=== PATIENT | female | born 1950 | race Caucasian/White ===

== ENCOUNTER 2016-05-18 09:31 | Inpatient (IN) | payer BC ==
--- NOTE | ~2016-05-18 | CN ---
Consultation Report [facility] [address] [place]. [address] NAME: CHENG MANCILLA : 52 STATUS : ADM IN [facility]#: [id number] AGE: 65 ADM/REG DATE : 05/18/16 MR#: [id number] REPORT SERV DATE: 05/25/16 DICTATED BY: GIOVANA BARON DATE: 05/24/16 REPORT STATUS : Draft TRANSCRIBED BY: ANKITA DATE: 05/24/16 NEUROLOGY CODE STROKE DATE OF CONSULTATION: 05/22/2016 CRITICAL CARE TIME: 58 minutes. The patient was evaluated and transferred to the critical care unit. HISTORY OF PRESENT ILLNESS: This is a 65-year-old female with known history of atrial fibrillation and past history of ? CVA, history of pseudoseizures are mentioned in the patient's past medical history in March 2016 when the patient had a nervous breakdown. This morning, the patient appeared to be poorly responsive to the nurses, refused to follow commands but appeared to move her four extremities spontaneously and purposefully. The patient appeared nervous and was not speaking. The patient's heart rate at that time was noted to be 120 although the patient's blood pressure and her vital signs were normal. Code stroke was called, and the patient was taken to the CT to obtain emergency CT scan of the head. The patient was evaluated in the CT scanner. At that time, the patient resisted eye opening, appeared to move her arms and legs spontaneously when moved from the stretcher to the CT table. The patient's NIH was difficult to evaluate since the patient did not follow commands although appeared to be alert. CT scan of the head showed no evidence of acute changes. Mild microvascular changes were noted. CTA was obtained to rule out evidence of occlusion or thrombosis and show no evidence of abnormalities. These were done as per stroke protocol. The patient's vital signs are stable. Blood pressure was 120/68. PHYSICAL EXAMINATION: VITAL SIGNS: Stable. Blood pressure was 120/68, pulse was 126 irregular, respirations 20, the patient was afebrile. HEENT: Head and neck examination showed her to be normocephalic. There was no evidence of trauma. Auscultation of the neck showed no evidence of bruits. Eye exam, sclerae were not icteric. Conjunctiva was pink. ENT exam was difficult to perform since the patient was not cooperative. Neck was supple. There was no Kernig or Brudzinski. Cervical range of motion appeared normal. CHEST: Symmetrical. LUNGS: Clear to auscultation. HEART: Irregular heart rate, approximately 120 beats per minute. ABDOMEN: Soft, nontender. Bowel sounds were present. EXTREMITIES: Showed no clubbing or cyanosis. There was no peripheral edema. NEUROLOGIC: Showed the patient to have normal spontaneous movements. The patient, however, refused to follow commands, resisted eye opening and eventually started mouthing words which were appropriate; however, the patient followed commands partially. No evidence of seizure activity was noted. The patient moved all four extremities and appeared to have no focal deficits on examination. MUSCULOSKELETAL: The tone was normal on examination of the patient's muscles. Deep tendon Consultation Report [facility] [address] [place]. [address] NAME: CHENG MANCILLA : 52 STATUS : ADM IN [facility]#: [id number] AGE: 65 ADM/REG DATE : 05/18/16 MR#: [id number] REPORT SERV DATE: 05/25/16 DICTATED BY: GIOVANA BARON DATE: 05/24/16 REPORT STATUS : Draft TRANSCRIBED BY: MODLamar DATE: 05/24/16 reflexes 1/2 throughout. Babinski signs were not elicitable. Sensory exam and cerebellar exam could not be tested in view of the patient's lack of cooperation. PAST MEDICAL HISTORY: The patient's records were reviewed and the patient's past medical history was stated as history of psychiatric disorder and anxiety, possible CVA in 2016, atrial flutter, reported history of SVT, and history of membranous ventricular septal defect. MEDICATIONS: Prior to admission included aspirin, Coreg, benazepril, Cymbalta, Lasix, warfarin, clonazepam, zinc, and simvastatin. ALLERGIES: No known allergies. SOCIAL HISTORY: She is a former smoker. FAMILY HISTORY: Family history was not known since the patient was apparently adopted. REVIEW OF SYSTEMS: Could not be performed and no information was present in the patient's records. The patient was admitted on 05/18/2016 with increasing lower extremity edema and dyspnea. The patient was apparently having some difficulty with urinary incontinence, was placed in VESIcare prior to her admission which caused some urinary dysfunction. The patient is followed by Dr. Lowry from Cardiology. Review of the patient's records from [facility] Dr. Orlando Shin dated 03/31/2016 mentioned that the patient has been followed in the Coumadin Clinic and mentioned that the patient has been recovering from her stroke which was thought to be embolic from paroxysmal atrial fibrillation. The imaging studies which were mentioned in these records include that the patient mention the MRI of the brain performed on 02/18/2016 with minor asymmetry of the left hippocampal and region and small vessel disease with lesion burden being mild and no evidence of acute infarct. The patient's echo/MUGA showed mild LAE, EEG ejection fraction of 60% to 65%, perimembranous ventricular septal defect with vnsy-el-xyrtn shunt which was noted on 08/22/2015. The patient was transferred from CT to the CCU where she was placed on a monitor which showed atrial fibrillation with a heart rate of 126. The patient appeared to become more responsive followed some commands, however, still would keep her eyes closed. The results of CT and CTA were explained to the patient and her present at her bedside. IMPRESSION: #. Acute onset of paroxysmal atrial fibrillation, no evidence of acute stroke at this time. However, if patient's abnormal behavior or continued poor responsiveness persists, I would recommend to obtain an MRI of the brain. Recommend cardiac evaluation treatment and follow up. If needed, an outpatient Neurology follow up. Recommend anticoagulation laboratory studies should include if not done recently; serum lipid panel, TSH, free T4, free T3. The Consultation Report [address] [place]. [address] NAME: CHENG MANCILLA : 52 STATUS : ADM IN PAT#: [id number] AGE: 65 ADM/REG DATE : 05/18/16 MR#: [id number] REPORT SERV DATE: 05/25/16 DICTATED BY: GIOVANA BARON DATE: 05/24/16 REPORT STATUS : Draft TRANSCRIBED BY: MODLamar DATE: 05/24/16 patient does have increased risk of a stroke in view of her past history of possible strokes. #. History of anxiety and as mentioned in the patient's past record possible pseudoseizures, and outpatient Psychiatry referral is recommended if needed and Neurology outpatient evaluation. Thank you for allowing me to participate in this patient's care. Total time spent with this patient was 58 minutes of critical care time. MIKE/ANKITA Giovana Baron MD / [id number] / [id number] CC: Brandon Lowry M.D.
--- NOTE | ~2016-05-18 | CN ---
Consultation Report [facility] [address] [place]. [address] NAME: CHENG ALCALA : 52 STATUS : ADM IN PAT#: [id number] AGE: 65 ADM/REG DATE : 05/18/16 MR#: [id number] REPORT SERV DATE: 05/19/16 DICTATED BY: GARLAND HOPKINS DATE: 05/19/16 REPORT STATUS : Draft TRANSCRIBED BY: MODL DATE: 05/19/16 ELECTROPHYSIOLOGY CONSULTATION DATE OF CONSULTATION: 05/18/2016 REQUESTING PROVIDER: Dr. Brandon Lowry. INDICATIONS: Atrial flutter, RVR. HISTORY OF PRESENT ILLNESS: Ms. Cheng Alcala is a 65-year-old female with a history of ventricular septal defect and atrial flutter, managed with propafenone. She was seen in the office yesterday and was admitted by Dr. Lowry with volume overload. She has received diuretics with improvement in shortness of breath. She continued to have some lower extremity edema. She has had atrial flutter since admission with heart rate of 115 to 120 beats per minute. Her QRS is 128 milliseconds on her ECG with nonspecific interventricular conduction delay. She reports symptoms of palpitations and increased heart rate and some breathlessness that overall improved. No chest pain. No syncope. She does have a background of psychiatric disorder and has been admitted in the past with pseudoseizures. PAST MEDICAL HISTORY: CVA 2016, anxiety and psychiatric disorder, history of membranous ventricular septal defect, atrial flutter, reported history of SVT that may possibly be atrial flutter as well. MEDICATIONS: Aspirin, Coreg, donepezil, Cymbalta, iron sulfate, Lasix, propafenone 150 t.i.d., warfarin, clonazepam, zinc, and simvastatin. ALLERGIES: NONE KNOWN. SOCIAL HISTORY: Former smoker. FAMILY HISTORY: The patient is adopted, therefore unknown. REVIEW OF SYSTEMS: As per the HPI. Otherwise, all other review of systems is negative. PHYSICAL EXAMINATION: VITAL SIGNS: Blood pressure is 117/70, pulse is 110-120, respiratory rate is 18, the patient is afebrile, oxygen saturation 96% on room air. GENERAL: Appears stated age, no distress. EYES: Sclerae anicteric, no arcus senilis. MOUTH: Oral mucosa moist, lips acyanotic. NECK: Jugular venous pressure normal, no carotid bruits. LUNGS: Diminished breath sounds in the bases. CARDIAC: Regular rhythm, tachycardiac, 2/6 systolic murmur. Consultation Report [facility] [address] [place]. [address] NAME: CHENG ALCALA : 52 STATUS : ADM IN PAT#: [id number] AGE: 65 ADM/REG DATE : 05/18/16 MR#: [id number] REPORT SERV DATE: 05/19/16 DICTATED BY: GARLAND HOPKINS DATE: 05/19/16 REPORT STATUS : Draft TRANSCRIBED BY: ANKITA DATE: 05/19/16 ABDOMEN: Soft, nondistended, nontender. EXTREMITIES: have 2+ edema. SKIN: Warm and dry. NEURO/PSYCH: Alert and oriented, nonfocal, mood appropriate. IMAGING: ECG from 05/18/2016, 1252 hours is probable atrial flutter with 2:1 AV block, ventricular response 118 beats per minute, QRS duration 128 milliseconds. DATA: INR is 1.7. BNP is 886. Hemoglobin is 13, creatinine is 1.25, potassium is 4.2. IMPRESSION: 1. Atrial flutter. 2. Propafenone use with increased QRS duration. 3. History of ventricular septal defect. 4. Psychiatric disorder with polypharmacy. 5. History of anxiety. 6. Volume overload. In terms of rhythm issues, we discussed with her options of antiarrhythmic adjustment either to possibly sotalol versus amiodarone. Concerned with the possibility of QT interactions with the patient's numerous medications, discussed with her the option of EP study and ablation of her probable atrial flutter process. She would require a JAYLA prior as her INR is subtherapeutic and she has history of CVA. I have discussed the procedure with her and addressed the rationale, logistics, and risks. Risks include, but not limited to bleeding, infection, vascular complications, myocardial infarction, stroke, cardiac perforation, possible need for emergent surgery, and possible conduction system injury in her pacemaker. All questions answered and the patient wished to proceed. SELINA/ANKITA Garland Hopkins M.D. / [id number] CC: Wilson Bowser M.D.
--- NOTE | ~2016-05-18 | OP ---
Record Of Operation [facility] [address] [place]. [address] NAME: CHENG ALCALA : 52 STATUS : ADM IN PAT#: [id number] AGE: 65 ADM/REG DATE : 05/18/16 MR#: [id number] REPORT SERV DATE: 05/19/16 DICTATED BY: GARLAND HOPKINS DATE: 05/19/16 REPORT STATUS : Draft TRANSCRIBED BY: MODL DATE: 05/19/16 DATE OF PROCEDURE: 05/19/2016 ELECTROPHYSIOLOGY STUDY REPORT [facility] Reporting system is inaccessible at the present time. PRIMARY RESEARCH GEOLOGIST: Arturo Rollins M.D. INDICATION: Atrial flutter. POSTPROCEDURE DIAGNOSIS: Atypical left atrial flutter. PROCEDURES PERFORMED: Comprehensive electrophysiology testing 55976 with left atrial paced and recording 32473 and restudy after IV drug infusion 46464. Vascular access is right femoral vein 8-Chilean x2. DESCRIPTION: Following informed consent, Ms Cheng Alcala is brought to the electrophysiology laboratory at [facility] in a fasting state. A preprocedure transesophageal echocardiogram performed and refer the reader to that report for full details. Preprocedure antibiotics administered. The patient prepped and draped in sterile fashion. 1% lidocaine infiltrated in the right femoral region. Vascular access was positioned in the right femoral vein with two 8-Chilean venous sheaths. A deflectable decapolar catheter additionally in the coronary sinus. A quadripolar catheter positioned to the region of the His bundle. The baseline rhythm was atypical left atrial flutter with variable left atrial flutter morphologies with variation of the activation sequence on the coronary sinus catheter. Left atrial flutter cycle length varied between 250 and 280 milliseconds. Entrainment mapping was performed along the proximal mid and distal coronary sinus with variable post pacing intervals ranging between 60 and 140 milliseconds. Of note, the post pacing interval did appear to be very even when pacing at the same location. Post pacing interval likely was closer to the tachycardia cycle length along the more proximal coronary sinus. Ibutilide 1 mg was administered, which returned the patient to sinus rhythm. At this point, the rhythm was sinus with an AH interval of 133 milliseconds and HV interval of 70 milliseconds. Atrial decremental pacing was performed from the coronary sinus and the AV block cycle length was 410 milliseconds. There was no evidence of pre-excitation or distal to His block. Ventricular decremental pacing was performed from a quadripolar catheter and VA block was observed at a pacing cycle length of 600 milliseconds. At this point, rhythm is not further attempted to be induced given variable left atrial flutter morphologies and enlargement of the atrium felt the best next course of action was antiarrhythmic therapy. IMPRESSIONS: Atypical left atrial flutter with variable left atrial flutter morphologies [facility] Of [facility] [id number] [place]. [address] NAME: CHENG ALCALA : 52 STATUS : ADM IN PAT#: [id number] AGE: 65 ADM/REG DATE : 05/18/16 MR#: [id number] REPORT SERV DATE: 05/19/16 DICTATED BY: GARLAND HOPKINS DATE: 05/19/16 REPORT STATUS : Draft TRANSCRIBED BY: ANKITA DATE: 05/19/16 along the coronary sinus. Atrial flutter terminated with 1 mg of ibutilide infusion. Borderline HV interval noted with an HV interval of 70 milliseconds. RECOMMENDATIONS: The patient demonstrated atypical atrial flutter with QRS widening with a rapid ventricular response during atrial flutter following on propafenone. Recommend transition propafenone to amiodarone. GKB/ANKITA Garland Hopkins M.D. / [id number] CC: Wilson Bowser M.D. James Hoback Jr., M.D.
--- NOTE | ~2016-05-18 | DS ---
Discharge Summary [facility] [address] [place]. [address] NAME: CHENG MANCILLA : 52 STATUS : DIS IN PAT#: [id number] AGE: 65 ADM/REG DATE : 05/18/16 MR#: [id number] REPORT SERV DATE: 06/05/16 DICTATED BY: BRANDON LOWRY DATE: 06/04/16 REPORT STATUS : Draft TRANSCRIBED BY: ANKITA DATE: 06/04/16 Data Collection from hospitalization DISCHARGE DIAGNOSES: 1. Atrial flutter, status post ablation. 2. Persistent atrial fibrillation. 3. Pseudoseizures. 4. History of cerebrovascular accident. 5. Depression and psychiatric illness with anxiety. 6. History of ventricular septal defect membranous-resolved. CONSULTATIONS: 1. Garland Hopkins M.D. 2. Giovana Baron MD. 3. Jd Zuñiga M.D. PROCEDURES: 1. Electrophysiology study, 05/19/2016. 2. CT scan of the brain without contrast, 05/22/2016. 3. CTA of the neck/brain stroke protocol, 05/22/2016. 4. Renal ultrasound, 05/25/2016. MEDICATIONS: Pacerone 200 mg twice a day, Coreg 25 mg twice a day, vitamin D3 1000 units every morning, Klonopin 0.5 mg twice a day, vitamin B12 1000 mcg daily, Aricept 5 mg daily, Unisom 5 mg at bedtime as needed, Cymbalta 60 mg twice a day, Echinacea-Goldenseal 1 capsule at bedtime, ferrous sulfate 325 mg at bedtime, Lasix 20 mg daily as needed, Neurontin 100 mg three times a day, multivitamins with minerals one tablet daily, fish oil 1000 mg daily, Zocor 20 mg at bedtime, magnesium citrate 300 mL daily as needed, Brisdelle 7.5 mg at bedtime, vitamin C gummy 2 tablets every morning, zinc one tablet at bedtime, melatonin 1 tablet at bedtime as needed, Jantoven 2.5 mg with supper and 3 mg on Mondays, Wednesdays, and Fridays as instructed. CONDITION AT DISCHARGE: Stable. DISPOSITION: The patient was discharged home on a low-sodium, low-cholesterol, cardiac diet with activities as instructed. She would follow up with Dr. Arturo Rollins on 06/15/2016, with Dr. Orlando Shin 7 days following discharge. She would follow up in the [facility] on 05/28/2016. HOSPITAL COURSE: This is a 65-year-old female who presented with increasing lower extremity edema and dyspnea. She had had difficulty with urinary incontinence. She had been placed on VESIcare and had noticed that her urine output ceased. With this, she began to have increasing edema and dyspnea. She recently stopped the VESIcare, and her urinating returned. She was admitted to the hospital at this time for further evaluation and treatment. Upon admission, she appeared to be volume overloaded. Diuresis was begun. She had a cardiac catheterization in 1992 and had normal coronary arteries. In 2000, she had Discharge Summary [address] [address] NAME: CHENG MANCILLA : 52 STATUS : DIS IN PAT#: [id number] AGE: 65 ADM/REG DATE : 05/18/16 MR#: [id number] REPORT SERV DATE: 06/05/16 DICTATED BY: BRANDON LOWRY DATE: 06/04/16 REPORT STATUS : Draft TRANSCRIBED BY: ANKITA DATE: 06/04/16 membranous septal defect with small to moderate bkjv-qk-zzwrr shunt. She was seen in consultation by Dr. Garland Hopkins regarding atrial flutter with rapid ventricular response. She had improvement in her shortness of breath with diuretics. She continued to have some lower extremity edema. She had had atrial flutter since admission with heart rate of 115 to 120 beats per minute. She has a background of psychiatric disorder and has been admitted in the past with pseudoseizures. Creatinine level was 1.35, potassium was 4.2. In terms of rhythm issues, we discussed with her the options of antiarrhythmic adjustments either to possibly sotalol versus amiodarone. There was concern was the possibility of QT interactions with the patient's numerous medications. We discussed with her the option of electrophysiology study and ablation of her probable atrial flutter process. She would require transesophageal echocardiogram prior as her INR is subtherapeutic and she has a history of CVA. Echocardiogram was performed. The patient underwent electrophysiology study by Dr. Garland Hopkins. The patient had atypical left atrial flutter with variable left atrial flutter morphologies along with coronary sinus. Atrial flutter terminated with 1 mg of ibutilide infusion. There was borderline HV interval noted with an HV interval of 70 milliseconds. The patient demonstrated atypical atrial flutter with QRS widening with rapid ventricular response during atrial flutter following on propafenone. It was recommended that we transition propafenone to amiodarone. On May 20, 2016, she had no chest pain. INR level was 1.5. Coumadin was being provided. The next day, she was in a normal sinus rhythm. She had no palpitations. On 05/22/2016, Coreg was increased. Her urinary retention had resolved. She was seen by Dr. Giovana Baron. The patient had a nervous breakdown in 03/2016. Earlier that morning, the patient appeared to be poorly responsive to the nurses and refused to follow commands but appeared to move her 4 extremities spontaneously and purposefully. She appeared nervous and was not speaking. Her heart rate was noted to be 120, although her blood pressure and vital signs were normal. Code Stroke was called, and she was taken to the CT where she underwent emergency CT of the head. In the CT scanner, she had resisted eye opening and appeared to move her arms and legs spontaneously when moved from the stretcher to the CT table. CT scan of the head showed no evidence of acute changes. Mild microvascular changes were noted. CTA was obtained to rule out evidence of occlusion or thrombosis and showed no evidence of abnormality. These were done as per stroke protocol. Her vital signs were stable, and blood pressure was 120/68. She had the acute onset of atrial fibrillation with no evidence of acute stroke at this time. However, with her abnormal behavior or continued poor responsiveness, it was felt we may need to obtain an MRI of the brain if this persisted. Cardiac evaluation and treatment were recommended as well as followup. Anticoagulation laboratory studies would be performed if not done recently. INR level was 1.9. On 05/23/2016, she had no palpitations or chest pain. She said she felt great. She was back in a normal sinus rhythm. She was on amiodarone and Coreg. On 05/24/2016, she was doing well, however did have some slurring of her speech at times. She was cooperative. She had no complaints at this time. Her INR level was 2.0. It was felt that she would need outpatient Psychiatric and Neurologic evaluation if needed. INR level was 2.2. On 05/25/2016, she was seen by Dr. Jd Zuñiga. Her INR level was therapeutic at 2.2. Creatinine had increased from 1.11 on admission to 1.55. She had developed metabolic alkalosis during that same period of time with bicarb going up to 35. White count was 10,000. Her weight had dropped from 95 to 86 kg. She was felt to be prerenal especially with metabolic alkalosis developing too with bicarb of 35. Showed relative decreased Discharge Summary [address] [address] NAME: CHENG MANCILLA : 52 STATUS : DIS IN PAT#: [id number] AGE: 65 ADM/REG DATE : 05/18/16 MR#: [id number] REPORT SERV DATE: 06/05/16 DICTATED BY: BRANDON LOWRY DATE: 06/04/16 REPORT STATUS : Draft TRANSCRIBED BY: MODL DATE: 06/04/16 perfusion. Ultrasound of the kidneys was done and was normal. A bladder scan was going to be checked to make sure she had no retention. Ultrasound showed no significant problem with the bladder. There was urine retention in there. She was in a normal sinus rhythm on medication at this time. Diuretics were held. She was given a L of lactated Ringer. Volume contraction would be treated with lactated Ringer. We would follow serial creatinine. He did not see any reason to keep her in the hospital. She could be followed as an outpatient off Coumadin. Discharge planning was performed. On 05/26/2016, she had no new complaints. She had no shortness of breath. Discharge instructions were given. Due to her improved and stable condition, she was discharged home with the above-stated instructions. Information collected by: Keara Brand I submit the above information as my discharge summary. TG/MODLamar Brandon Lowry M.D. / [id number] CC: Wilson Bowser M.D. Gregory Keith Bruce, M.D. Joseph Watlington M.D.
--- NOTE | ~2016-05-18 | HP ---
History And Physical [facility] [id number] [place]. [address] NAME: CHENG ALCALA : 52 STATUS : ADM IN [facility]#: [id number] AGE: 65 ADM/REG DATE : 05/18/16 MR#: [id number] REPORT SERV DATE: 05/18/16 DICTATED BY: BRANDON LOWRY DATE: 05/18/16 REPORT STATUS : Draft TRANSCRIBED BY: MODL DATE: 05/18/16 DATE OF ADMISSION: 05/18/2016 Mrs. Cheng Alcala enters with increasing lower extremity edema and dyspnea. CVD PHYSICIAN: Arturo Rollins M.D. HISTORY OF PRESENT ILLNESS: Mrs. Cheng Alcala has had difficulty with urinary incontinence. She was placed on VESIcare and noted that the urine output had ceased. With this she began increasing edema and dyspnea. She recently stopped the VESIcare and urinating returned. REVIEW OF SYSTEMS: No chest pain, chest discomfort, palpitations, syncope, presyncope, fever, chills. PAST MEDICAL HISTORY: 1. History of VSD membranous, resolved. 2. Paroxysmal atrial flutter and supraventricular tachycardia, currently on propafenone. 3. History of pulmonary embolus in the past. 4. Depression and psychiatric illness with anxiety. 5. History of CVA. SOCIAL HISTORY: She has strong family support. She does not drink or smoke. FAMILY HISTORY: The patient is adopted, no family history known. PHYSICAL EXAMINATION: VITAL SIGNS: Blood pressure is 110/64, pulse is 96, and she is in moderate respiratory distress. LUNGS: Bilateral breath sounds are heard with rales in the bases. Some use of accessory muscle is noted. HEART: Precordium is quiet. S1, S2 are normal. S4 is present. Soft S3 is noted. ABDOMEN: Soft. EXTREMITIES: Demonstrate 1 to 2+ edema. They are warm. LABORATORY DATA: 1. Cardiac catheterization showed normal coronary arteries in 1992 and 2000 with membranous septal defect with small to moderate left to right shunt. 2. Left ventricular function previously on echocardiogram was intact in 04/22. ASSESSMENT: At this time, appears to be volume overloaded. We will admit her to the hospital due to her clinical severity and to begin diuresis. ZAYRA/ANKITA History And Physical [address] [place]. [address] NAME: CHENG ALCALA : 52 STATUS : ADM IN [facility]#: [id number] AGE: 65 ADM/REG DATE : 05/18/16 MR#: [id number] REPORT SERV DATE: 05/18/16 DICTATED BY: BRANDON LOWRY DATE: 05/18/16 REPORT STATUS : Draft TRANSCRIBED BY: MODL DATE: 05/18/16 Brandon Lowry M.D. / [id number] CC: Wilson Bowser M.D.
--- NOTE | ~2016-05-18 | TEE ---
Transesophageal Echocardiogram [facility] [address] [facility] [place]. [address] NAME: CHENG ALCALA : 52 STATUS : ADM IN [facility]#: [id number] AGE: 65 ADM/REG DATE : 05/18/16 MR#: [id number] REPORT SERV DATE: 05/19/16 DICTATED BY: DATE: REPORT STATUS : Draft TRANSCRIBED BY: MODL DATE: 05/19/16 CHIEF COMPLAINT/REASON FOR PROCEDURE: Atrial flutter. Written informed consent obtained. Please see chart for documentation. PROCEDURE: With the assistance of my Anesthesia colleagues, Mrs. Alcala was sedated for the procedure. The transesophageal probe was placed with two attempts without complication. 1. The aortic valve appeared to open normally. The valve was trileaflet. There was moderate color flow evidence of aortic valvular regurgitation. 2. The left ventricular systolic function appeared mildly decreased via visual estimate with a visually estimated ejection fraction of 45% to 50%. The cavity size and wall thickness appeared normal. There was a small perimembranous ventricular septal defect noted with color flow evidence of left to right shunt. 3. The mitral and tricuspid valve leaflets appeared to open normally. There was mild-to- moderate color flow evidence of tricuspid valvular regurgitation. Estimated right ventricular end systolic pressures assuming a right atrial pressure of 50 mmHg consistent with moderate pulmonary hypertension. The mitral valve leaflets opened normally. There was trivial mitral valvular regurgitation noted. 4. The left atrium and left atrial appendage were interrogated at multiple levels and depths. Doppler velocities within the left atrial appendage were low at 20 cm/second. There was no evidence of left atrial or left atrial appendage thrombus. 5. There was severe biatrial dilatation noted. 6. The pulmonary valve appeared to open normally. There was mild color flow evidence of pulmonary valvular regurgitation. 7. The right ventricle appeared dilated with osicev-fu-qudvzfjgkv decreased systolic function. 8. There was no evidence of pericardial effusion. IMPRESSION: 1. Low normal to mildly decreased left ventricular systolic function with a visually estimated ejection fraction of 45% to 50%. 2. Mild aortic valvular regurgitation. 3. Izgf-xg-fgozkwzo tricuspid valvular regurgitation with moderate pulmonary hypertension and right ventricular end systolic pressure of 50 mmHg. 4. Perimembranous ventricular septal defect. 5. Dilated right ventricle with bpbets-ix-oxxlltfrig decreased systolic function. CONCLUSION: NO EVIDENCE OF LEFT ATRIAL OR LEFT ATRIAL APPENDAGE THROMBUS. RECOMMENDATIONS: Consider referral for ventricular septal defect repair if clinically indicated. BIBIANA/ANKITA Leah Burkett Transesophageal Echocardiogram [address] [address] NAME: CHENG ALCALA : 52 STATUS : ADM IN [facility]#: [id number] AGE: 65 ADM/REG DATE : 05/18/16 MR#: [id number] REPORT SERV DATE: 05/19/16 DICTATED BY: DATE: REPORT STATUS : Draft TRANSCRIBED BY: ANKITA DATE: 05/19/16 Wilson Verma / [id number] CC: Wilson Bowser M.D.
--- NOTE | ~2016-05-18 | CN ---
Consultation Report [facility] [address] [place]. [address] NAME: CHENG ALCALA : 52 STATUS : ADM IN PAT#: [id number] AGE: 65 ADM/REG DATE : 05/18/16 MR#: [id number] REPORT SERV DATE: 05/25/16 DICTATED BY: JD SARAVIA DATE: 05/25/16 REPORT STATUS : Draft TRANSCRIBED BY: MODL DATE: 05/25/16 NEPHROLOGY CONSULT DATE OF CONSULTATION: 05/25/2016 HISTORY OF PRESENT ILLNESS: Ms. Alcala is a 65-year-old white female, admitted to the hospital for atrial fibrillation with rapid ventricular response and congestive heart failure, was diuresed initially. Her weight has gone from 95 kg down to 86 kg, and because of persistent atrial fib/flutter, underwent EP studies by Dr. Hopkins, but no radiofrequency ablation. Echocardiogram at that time showed an ejection fraction of 45% to 50% (JAYLA). No clots and since that time has done much better with her weight. INR is now therapeutic at 2.2 and had one episode where she had an anxiety attack, she called it a nervous breakdown because of some problems with her children. This has resolved. She feels more comfortable now. Neurology did see her during that episode and really could not identify any CVA symptoms, but I am consulted today for creatinine going from 1.11 on admission to 1.55. She has developed metabolic alkalosis during the same period of time with bicarb going up to 35. SOCIAL HISTORY: Former smoker. None currently. FAMILY HISTORY: Adopted. No history. ALLERGIES: NO KNOWN DRUG ALLERGIES. MEDICATIONS ON ADMISSION: Aspirin, Coreg, donepezil, Cymbalta, iron sulfate, Lasix, propafenone, warfarin, clonazepam, zinc, and simvastatin. She was on VESIcare at one point but that was discontinued because of bladder retention. PAST MEDICAL HISTORY: CVA in 2016 thought to be due to a ventricular septal defect, congenital, membranous; chronic atrial fib/flutter; and anxiety and depression, treated with medications. REVIEW OF SYSTEMS: Basically felt well until anxiety attack except for the tachyarrhythmias, feels much better now. PHYSICAL EXAMINATION: VITAL SIGNS: Blood pressure is 131/74, heart rate 73, respirations 18, temperature 97.5. GENERAL: Alert and cooperative and in no acute distress. HEENT: Unremarkable. NECK: Supple. CARDIOVASCULAR: Grade 3/6 systolic ejection murmur. Sinus rhythm. No bruits and good pulses in all four extremities. LUNGS: Clear. ABDOMEN: Soft, benign. Bowel sounds present. No bruits. Consultation Report [facility] [address] [place]. [address] NAME: CHENG ALCALA : 52 STATUS : ADM IN [facility]#: [id number] AGE: 65 ADM/REG DATE : 05/18/16 MR#: [id number] REPORT SERV DATE: 05/25/16 DICTATED BY: JD SARAVIA DATE: 05/25/16 REPORT STATUS : Draft TRANSCRIBED BY: ANKITA DATE: 05/25/16 EXTREMITIES: No significant edema. Some varicose veins noted. No open sores and no purple toes. NEUROLOGIC: Intact. LABORATORY DATA: Lab shows a sodium of 143, potassium 4.7, chloride 102, CO2 35, BUN of 15, creatinine 1.55, blood sugar 114, calcium 9.1, magnesium 2.1, white count 10,000, hemoglobin 14, hematocrit 45, and platelet count 272,000. ASSESSMENT: 1. Acute kidney injury, creatinine going from 1.1 to 1.5. At that time, her weight has dropped from 95 to 86 kg, acts prerenal, especially with metabolic alkalosis developing too, bicarb of 35. Relative decreased perfusion. Ultrasound of the kidneys that has been done today was normal. 2. History of urinary retention followed by Dr. Robert. Did not tolerate VESIcare. Will check a bladder scan to make sure she is still not retaining. The ultrasound showed no significant problem with her bladder. There was urine retention in there. 3. Ventricular septal defect, membranous-type, anticoagulated for this, on Coumadin. Had a cerebrovascular accident in 2016. 4. Atrial fib/flutter, cardioverted. No radiofrequency ablation. Normal sinus rhythm today, on medications. 5. Anxiety/depression, on medications. 6. Metabolic alkalosis. Thought to be secondary to volume contraction with drop in weight and diuretics. I held diuretics and gave her a liter of lactated Ringer's. PLAN: Volume contraction will be treated with lactated Ringer's. We will follow serial creatinines. Do not see any reason to keep her in the hospital. Can follow as an outpatient, off Coumadin. JATINDER/ANKITA Jd Saravia M.D. / [id number] CC: Brandon Lowry M.D.
[~2016-05-18 09:31] MED LIST: ARICEPT5 PO; ASAB PO; BUFFERIN PO; CALTRAT600 PO; CEFT2 PO; CINNAMON PO; CYANO1000T PO; CYMBALTA60 PO; ECHINACEA PO; FISH OIL1200 MG PO; FISH-EPA1000 MG PO; FLAXSEED OIL1000 MG; GARLIC PO; HALCION0.25 MG PO; IRON PO; JANTOVEN2.5 MG PO; KLONO1 PO; LOP25 PO; LOP50 PO; LOVENOX1C; LOVENOX40; MAGNESIUM CITRATE PO; MELA3 PO; MIRALAXPKT PO; MULTIVIT/MIN PO; NEUR100 PO; RYTHMOL150 MG PO; SIMVASTATIN PO; T; VICKS SINEX12 HR NAS; VITAMIN B-121000 MC1 SL; VITAMIN D1000 UNI1 PO; VITAMIN D31000 UNIT PO; VITC500 PO; ZINC PO; ZOCOR20 PO; ZOCOR40 PO; [UNRECOGNIZED DRUG - REMARK]
[2016-05-18 10:35] LABS: BASOPHILS 0.4 %; BASOPHILS ABSOLUTE 0.04 10/3/uL (0.0-0.16); EOSINOPHILS 3.2 %; EOSINOPHILS ABSOLUTE 0.31 10/3/uL (0.0-0.53); IMMATURE GRANULOCYTES 0.5 %; IMMATURE GRANULOCYTES ABSOLUTE 0.05 10/3/uL (0.0-0.11); LYMPHOCYTES 23.2 %; LYMPHOCYTES ABSOLUTE 2.27 10/3/uL (0.67-4.30); MEAN CORPUS HGB CONC 32.5 g/dL (32.0-36.0); MEAN CORPUSCULAR HEMOGLOB 33.3 pg (26.0-34.0); MEAN CORPUSCULAR VOLUME 102.6 fL (80-100); MEAN PLATELET VOLUME 9.6 fL (9.2-13.0); MONOCYTES ABSOLUTE 1.17 10/3/uL (0.21-1.20); NEUTROPHILS 60.7 %; NEUTROPHILS ABSOLUTE 5.93 10/3/uL (2.02-8.40); RBC DISTRIBUTION WIDTH 16.1 % (12.0-16.0); WHITE BLOOD CELLS 9.8 10/3/uL (4.5-10.5)
[2016-05-18 10:36] LABS: MANUAL DIFF NO %; PLATELET COUNT 255 10/3/uL (150-400)
[2016-05-18 10:38] LABS: NUCLEATED RED BLOOD CELLS 1.7 /100WBC (0-0)
[2016-05-18 11:08] LABS: A/G RATIO 0.9 (0.7-1.9); ALBUMIN 3.5 G/DL (3.5-5.0); ALKALINE PHOSPHATASE 193 U/L (45-117); BUN (BLOOD UREA NITROGEN) 26 MG/DL (6-23); CALCIUM, SERUM 9.1 MG/DL (8.5-10.4); CHLORIDE, SERUM 98 MMOL/L (96-112); CO2 (CARBON DIOXIDE) 32 MMOL/L (24-34); CREATININE 1.25 MG/DL (0.55-1.02); GFR AFRICAN AMERICAN 53 ML/MIN (>=60); GFR NON AFRICAN AMERICAN 45 ML/MIN (>=60); GLUCOSE, SERUM 97 MG/DL (60-99); POTASSIUM, SERUM 4.2 MMOL/L (3.5-5.3); SGOT(AST) 38 U/L (5-40); SGPT(ALT) 49 U/L (5-65); SODIUM, SERUM 141 MMOL/L (135-148); TOTAL BILIRUBIN 0.5 MG/DL (0-1.2); TOTAL PROTEIN 7.5 G/DL (6.0-8.5)
[2016-05-18] MEDS ORDERED: PAX10 PO (11:20)
[2016-05-18] MEDS ORDERED: ASA5GR PO (11:23)
[2016-05-18] MEDS ORDERED: BRISDELLE PO (11:26)
[2016-05-18] MEDS ORDERED: I10 PO (11:34)
[2016-05-18] MEDS ORDERED: VITAMIN C GUMMY PO (11:37)
[2016-05-18] MEDS ORDERED: ZINC PO (11:38)
[2016-05-18] MEDS ORDERED: FERROUS SULF325 M1 PO (11:38)
[2016-05-18] MEDS ORDERED: MELATONIN PO (11:39)
[2016-05-18] MEDS ORDERED: ECHINACEA1 PO (11:39)
[2016-05-18] MEDS ORDERED: UNISOM25 MG PO (11:40)
[2016-05-18 18:20] LABS: INTERNATIONAL NORMAL RATI 1.8 UNITS (-); PROTIME (NOT ORD) 20.4 SEC (12.0-14.5)
[2016-05-19 06:39] LABS: INTERNATIONAL NORMAL RATI 1.7 UNITS (-); PROTIME (NOT ORD) 19.9 SEC (12.0-14.5)
[2016-05-20 08:28] LABS: INTERNATIONAL NORMAL RATI 1.5 UNITS (-); PROTIME (NOT ORD) 17.9 SEC (12.0-14.5)
[2016-05-20 08:29] LABS: PARTIAL THROMBO TIME 61.1 SEC (22.5-37.2)
[2016-05-20 08:32] LABS: BUN (BLOOD UREA NITROGEN) 19 MG/DL (6-23); CALCIUM, SERUM 8.4 MG/DL (8.5-10.4); CHLORIDE, SERUM 100 MMOL/L (96-112); CO2 (CARBON DIOXIDE) 30 MMOL/L (24-34); CREATININE 1.38 MG/DL (0.55-1.02); GFR AFRICAN AMERICAN 47 ML/MIN (>=60); GFR NON AFRICAN AMERICAN 40 ML/MIN (>=60); GLUCOSE, SERUM 200 MG/DL (60-99); POTASSIUM, SERUM 3.7 MMOL/L (3.5-5.3); SODIUM, SERUM 139 MMOL/L (135-148)
[2016-05-21 07:25] LABS: INTERNATIONAL NORMAL RATI 1.8 UNITS (-)
[2016-05-21 07:26] LABS: PROTIME (NOT ORD) 21.1 SEC (12.0-14.5)
[2016-05-21 07:29] LABS: CHLORIDE, SERUM 103 MMOL/L (96-112); CO2 (CARBON DIOXIDE) 32 MMOL/L (24-34); GFR AFRICAN AMERICAN 61 ML/MIN (>=60); GFR NON AFRICAN AMERICAN 53 ML/MIN (>=60); POTASSIUM, SERUM 3.3 MMOL/L (3.5-5.3); SODIUM, SERUM 144 MMOL/L (135-148)
[2016-05-21 07:31] LABS: BUN (BLOOD UREA NITROGEN) 15 MG/DL (6-23); GLUCOSE, SERUM 121 MG/DL (60-99)
[2016-05-21 07:33] LABS: BASOPHILS 0.3 %; BASOPHILS ABSOLUTE 0.03 10/3/uL (0.0-0.16); EOSINOPHILS 0.4 %; EOSINOPHILS ABSOLUTE 0.05 10/3/uL (0.0-0.53); HEMATOCRIT 37.8 % (36.0-48.0); HEMOGLOBIN 12.1 g/dL (12.0-16.0); IMMATURE GRANULOCYTES 0.3 %; IMMATURE GRANULOCYTES ABSOLUTE 0.04 10/3/uL (0.0-0.11); LYMPHOCYTES 17.4 %; LYMPHOCYTES ABSOLUTE 2.03 10/3/uL (0.67-4.30); MEAN CORPUSCULAR HEMOGLOB 32.8 pg (26.0-34.0); MEAN CORPUSCULAR VOLUME 102.4 fL (80-100); MEAN PLATELET VOLUME 9.9 fL (9.2-13.0); MONOCYTES 10.7 %; MONOCYTES ABSOLUTE 1.25 10/3/uL (0.21-1.20); NEUTROPHILS 70.9 %; PLATELET COUNT 252 10/3/uL (150-400); RBC DISTRIBUTION WIDTH 16.8 % (12.0-16.0); RED CELL COUNT 3.69 10/6/uL (4.0-5.6); WHITE BLOOD CELLS 11.7 10/3/uL (4.5-10.5)
[2016-05-21 07:38] LABS: MANUAL DIFF NO %
[2016-05-22 06:53] LABS: INTERNATIONAL NORMAL RATI 1.9 UNITS (-); PROTIME (NOT ORD) 21.7 SEC (12.0-14.5)
[2016-05-22 06:54] LABS: BUN (BLOOD UREA NITROGEN) 13 MG/DL (6-23); CALCIUM, SERUM 9.2 MG/DL (8.5-10.4); CHLORIDE, SERUM 105 MMOL/L (96-112); CO2 (CARBON DIOXIDE) 29 MMOL/L (24-34); CREATININE 1.11 MG/DL (0.55-1.02); GFR AFRICAN AMERICAN 61 ML/MIN (>=60); GFR NON AFRICAN AMERICAN 52 ML/MIN (>=60); GLUCOSE, SERUM 132 MG/DL (60-99); PARTIAL THROMBO TIME 85.7 SEC (22.5-37.2); POTASSIUM, SERUM 3.9 MMOL/L (3.5-5.3); SODIUM, SERUM 143 MMOL/L (135-148)
[2016-05-22 07:04] LABS: BASOPHILS 0.6 %; BASOPHILS ABSOLUTE 0.05 10/3/uL (0.0-0.16); EOSINOPHILS 4.1 %; EOSINOPHILS ABSOLUTE 0.32 10/3/uL (0.0-0.53); HEMOGLOBIN 14.1 g/dL (12.0-16.0); IMMATURE GRANULOCYTES 0.3 %; IMMATURE GRANULOCYTES ABSOLUTE 0.02 10/3/uL (0.0-0.11); LYMPHOCYTES 36.8 %; LYMPHOCYTES ABSOLUTE 2.87 10/3/uL (0.67-4.30); MEAN CORPUS HGB CONC 32.7 g/dL (32.0-36.0); MEAN CORPUSCULAR HEMOGLOB 33.8 pg (26.0-34.0); MEAN CORPUSCULAR VOLUME 103.4 fL (80-100); MEAN PLATELET VOLUME 9.9 fL (9.2-13.0); MONOCYTES 10.8 %; MONOCYTES ABSOLUTE 0.84 10/3/uL (0.21-1.20); NEUTROPHILS 47.4 %; NEUTROPHILS ABSOLUTE 3.69 10/3/uL (2.02-8.40); PLATELET COUNT 278 10/3/uL (150-400); RBC DISTRIBUTION WIDTH 16.8 % (12.0-16.0); RED CELL COUNT 4.17 10/6/uL (4.0-5.6); WHITE BLOOD CELLS 7.8 10/3/uL (4.5-10.5)
[2016-05-22 07:21] LABS: HEMATOCRIT 43.1 % (36.0-48.0); MANUAL DIFF NO %
[2016-05-23 05:08] LABS: BASOPHILS 0.9 %; BASOPHILS ABSOLUTE 0.06 10/3/uL (0.0-0.16); EOSINOPHILS 4.3 %; HEMATOCRIT 43.1 % (36.0-48.0); HEMOGLOBIN 14.1 g/dL (12.0-16.0); IMMATURE GRANULOCYTES 0.3 %; IMMATURE GRANULOCYTES ABSOLUTE 0.02 10/3/uL (0.0-0.11); LYMPHOCYTES 27.8 %; LYMPHOCYTES ABSOLUTE 1.92 10/3/uL (0.67-4.30); MEAN CORPUS HGB CONC 32.7 g/dL (32.0-36.0); MEAN CORPUSCULAR HEMOGLOB 33.8 pg (26.0-34.0); MEAN CORPUSCULAR VOLUME 103.4 fL (80-100); MEAN PLATELET VOLUME 9.8 fL (9.2-13.0); MONOCYTES ABSOLUTE 0.76 10/3/uL (0.21-1.20); NEUTROPHILS 55.7 %; NEUTROPHILS ABSOLUTE 3.84 10/3/uL (2.02-8.40); PLATELET COUNT 260 10/3/uL (150-400); RBC DISTRIBUTION WIDTH 16.5 % (12.0-16.0); RED CELL COUNT 4.17 10/6/uL (4.0-5.6); WHITE BLOOD CELLS 6.9 10/3/uL (4.5-10.5)
[2016-05-23 05:12] LABS: BUN (BLOOD UREA NITROGEN) 12 MG/DL (6-23); CALCIUM, SERUM 9.2 MG/DL (8.5-10.4); CHLORIDE, SERUM 98 MMOL/L (96-112); CO2 (CARBON DIOXIDE) 33 MMOL/L (24-34); CREATININE 1.25 MG/DL (0.55-1.02); GFR AFRICAN AMERICAN 53 ML/MIN (>=60); GFR NON AFRICAN AMERICAN 45 ML/MIN (>=60); GLUCOSE, SERUM 124 MG/DL (60-99); POTASSIUM, SERUM 3.5 MMOL/L (3.5-5.3); SODIUM, SERUM 142 MMOL/L (135-148)
[2016-05-23 05:15] LABS: MANUAL DIFF NO %
[2016-05-23 05:24] LABS: INTERNATIONAL NORMAL RATI 1.9 UNITS (-); PROTIME (NOT ORD) 21.2 SEC (12.0-14.5)
[2016-05-24 03:46] LABS: BASOPHILS 0.6 %; BASOPHILS ABSOLUTE 0.05 10/3/uL (0.0-0.16); EOSINOPHILS 5.1 %; EOSINOPHILS ABSOLUTE 0.42 10/3/uL (0.0-0.53); HEMATOCRIT 45.8 % (36.0-48.0); HEMOGLOBIN 15.2 g/dL (12.0-16.0); IMMATURE GRANULOCYTES 0.4 %; IMMATURE GRANULOCYTES ABSOLUTE 0.03 10/3/uL (0.0-0.11); LYMPHOCYTES 22.7 %; LYMPHOCYTES ABSOLUTE 1.88 10/3/uL (0.67-4.30); MEAN CORPUS HGB CONC 33.2 g/dL (32.0-36.0); MEAN CORPUSCULAR HEMOGLOB 33.9 pg (26.0-34.0); MEAN CORPUSCULAR VOLUME 102.2 fL (80-100); MEAN PLATELET VOLUME 9.6 fL (9.2-13.0); MONOCYTES ABSOLUTE 0.75 10/3/uL (0.21-1.20); NEUTROPHILS 62.2 %; NEUTROPHILS ABSOLUTE 5.17 10/3/uL (2.02-8.40); PLATELET COUNT 276 10/3/uL (150-400); RBC DISTRIBUTION WIDTH 15.9 % (12.0-16.0); RED CELL COUNT 4.48 10/6/uL (4.0-5.6); WHITE BLOOD CELLS 8.3 10/3/uL (4.5-10.5)
[2016-05-24 03:50] LABS: MANUAL DIFF NO %
[2016-05-24 03:51] LABS: PROTIME (NOT ORD) 22.7 SEC (12.0-14.5)
[2016-05-24 03:52] LABS: PARTIAL THROMBO TIME 66.6 SEC (22.5-37.2)
[2016-05-24 03:58] LABS: BUN (BLOOD UREA NITROGEN) 15 MG/DL (6-23); CALCIUM, SERUM 8.8 MG/DL (8.5-10.4); CHLORIDE, SERUM 101 MMOL/L (96-112); CO2 (CARBON DIOXIDE) 32 MMOL/L (24-34); GFR AFRICAN AMERICAN 50 ML/MIN (>=60); GFR NON AFRICAN AMERICAN 43 ML/MIN (>=60); GLUCOSE, SERUM 143 MG/DL (60-99); POTASSIUM, SERUM 3.9 MMOL/L (3.5-5.3); SODIUM, SERUM 143 MMOL/L (135-148)
[2016-05-25 03:34] LABS: BASOPHILS 0.6 %; BASOPHILS ABSOLUTE 0.06 10/3/uL (0.0-0.16); EOSINOPHILS 3.2 %; EOSINOPHILS ABSOLUTE 0.34 10/3/uL (0.0-0.53); HEMATOCRIT 45.3 % (36.0-48.0); HEMOGLOBIN 14.8 g/dL (12.0-16.0); IMMATURE GRANULOCYTES 0.3 %; IMMATURE GRANULOCYTES ABSOLUTE 0.03 10/3/uL (0.0-0.11); LYMPHOCYTES 21.6 %; LYMPHOCYTES ABSOLUTE 2.27 10/3/uL (0.67-4.30); MEAN CORPUS HGB CONC 32.7 g/dL (32.0-36.0); MEAN CORPUSCULAR HEMOGLOB 33.4 pg (26.0-34.0); MEAN CORPUSCULAR VOLUME 102.3 fL (80-100); MEAN PLATELET VOLUME 9.8 fL (9.2-13.0); MONOCYTES 11.1 %; MONOCYTES ABSOLUTE 1.17 10/3/uL (0.21-1.20); NEUTROPHILS 63.2 %; NEUTROPHILS ABSOLUTE 6.64 10/3/uL (2.02-8.40); PLATELET COUNT 272 10/3/uL (150-400); RBC DISTRIBUTION WIDTH 15.9 % (12.0-16.0); RED CELL COUNT 4.43 10/6/uL (4.0-5.6); WHITE BLOOD CELLS 10.5 10/3/uL (4.5-10.5)
[2016-05-25 03:35] LABS: MANUAL DIFF NO %
[2016-05-25 03:40] LABS: INTERNATIONAL NORMAL RATI 2.2 UNITS (-); PROTIME (NOT ORD) 23.9 SEC (12.0-14.5)
[2016-05-25 03:51] LABS: BUN (BLOOD UREA NITROGEN) 15 MG/DL (6-23); CALCIUM, SERUM 9.1 MG/DL (8.5-10.4); CHLORIDE, SERUM 102 MMOL/L (96-112); CO2 (CARBON DIOXIDE) 35 MMOL/L (24-34); CREATININE 1.55 MG/DL (0.55-1.02); GFR AFRICAN AMERICAN 41 ML/MIN (>=60); GFR NON AFRICAN AMERICAN 35 ML/MIN (>=60); SODIUM, SERUM 143 MMOL/L (135-148)
[2016-05-25 03:52] LABS: GLUCOSE, SERUM 114 MG/DL (60-99); POTASSIUM, SERUM 4.7 MMOL/L (3.5-5.3)
[2016-05-25 15:28] LABS: ASCORBIC ACID (UR NOT ORDER) NEG (NEG); BILIRUBIN, URINE NEGATIVE (NEG); KETONE, URINE NEGATIVE (NEG); LEUKOCYTE ESTERASE(NOT OR NEG (NEG); WBC (NOT ORDERED) (RFLEX) < 1 (0-5)
[2016-05-26 04:26] LABS: BASOPHILS 1.2 %; BASOPHILS ABSOLUTE 0.08 10/3/uL (0.0-0.16); EOSINOPHILS 6.1 %; HEMATOCRIT 44.8 % (36.0-48.0); HEMOGLOBIN 14.4 g/dL (12.0-16.0); IMMATURE GRANULOCYTES 0.5 %; IMMATURE GRANULOCYTES ABSOLUTE 0.03 10/3/uL (0.0-0.11); LYMPHOCYTES 29.9 %; LYMPHOCYTES ABSOLUTE 1.97 10/3/uL (0.67-4.30); MEAN CORPUS HGB CONC 32.1 g/dL (32.0-36.0); MEAN CORPUSCULAR HEMOGLOB 32.9 pg (26.0-34.0); MEAN CORPUSCULAR VOLUME 102.3 fL (80-100); MEAN PLATELET VOLUME 9.7 fL (9.2-13.0); MONOCYTES 13.2 %; MONOCYTES ABSOLUTE 0.87 10/3/uL (0.21-1.20); NEUTROPHILS 49.1 %; NEUTROPHILS ABSOLUTE 3.23 10/3/uL (2.02-8.40); PLATELET COUNT 268 10/3/uL (150-400); RBC DISTRIBUTION WIDTH 15.6 % (12.0-16.0); RED CELL COUNT 4.38 10/6/uL (4.0-5.6); WHITE BLOOD CELLS 6.6 10/3/uL (4.5-10.5)
[2016-05-26 04:27] LABS: MANUAL DIFF NO %
[2016-05-26 04:29] LABS: INTERNATIONAL NORMAL RATI 2.2 UNITS (-); PROTIME (NOT ORD) 24.6 SEC (12.0-14.5)
[2016-05-26 04:41] LABS: BUN (BLOOD UREA NITROGEN) 13 MG/DL (6-23); CALCIUM, SERUM 9.1 MG/DL (8.5-10.4); CHLORIDE, SERUM 103 MMOL/L (96-112); CREATININE 1.25 MG/DL (0.55-1.02); GFR AFRICAN AMERICAN 53 ML/MIN (>=60); GFR NON AFRICAN AMERICAN 45 ML/MIN (>=60); GLUCOSE, SERUM 129 MG/DL (60-99); PHOSPHORUS, SERUM 2.9 MG/DL (2.5-4.5); POTASSIUM, SERUM 3.8 MMOL/L (3.5-5.3); SODIUM, SERUM 140 MMOL/L (135-148)
[2016-05-26 04:49] LABS: CO2 (CARBON DIOXIDE) 29 MMOL/L (24-34)
[2016-05-26] MEDS ORDERED: PACERONE200 MG PO (16:30)
[2016-05-26] MEDS ORDERED: L20 PO (16:31)
[2016-05-26] MEDS ORDERED: COREG25 PO (16:32)
[2016-05-26] MEDS ORDERED: JANTOVEN3 MG PO (16:32)
== END 2016-05-26 17:37 | disposition home or self-care (01) | DRG 273 ==
LOC: 5NO 09:31 → CCU 05-22 08:44 → 5NO 05-23 11:55
PROVIDERS: Internal Medicine Cardiovascular Disease; Internal Medicine Nephrology
PROC: 4A023FZ Measurement of Cardiac Rhythm, Percutaneous Approach (ICD-10-PCS; principal; 2016-05-19)
PROC: 4A0234Z Measurement of Cardiac Electrical Activity, Percutaneous Approach (ICD-10-PCS; 2016-05-19)
PROC: 02K83ZZ Map Conduction Mechanism, Percutaneous Approach (ICD-10-PCS; 2016-05-19)
DX: I48.4 Atypical atrial flutter (principal); G93.49 Other encephalopathy; I50.21 Acute systolic (congestive) heart failure; N17.9 Acute kidney failure, unspecified; E87.70 Fluid overload, unspecified; F32.9 Major depressive disorder, single episode, unspecified; I48.0 Paroxysmal atrial fibrillation; F41.9 Anxiety disorder, unspecified; Z86.73 Personal history of transient ischemic attack (TIA), and cerebral infarction without residual deficits; Z79.82 Long term (current) use of aspirin; Z86.711 Personal history of pulmonary embolism; Z79.01 Long term (current) use of anticoagulants; Z87.891 Personal history of nicotine dependence
CPT/HCPCS: 70450; 70496; 70498; 71020; 76775; 80048; 80053; 80069; 81001; 82962; 83735; 83880; 85025; 85610; 85730; 87641; 93005; 93312; 93320; 93325; 93620; 93621; A9270-GY; C1730; C1733; C1769; C1781; C1894; C8929; J0690; J1742; J2250; J2405; J3010; Q9957; Q9967

== ENCOUNTER 2016-07-03 20:11 | Emergency (ER) | payer BC ==
[~2016-07-03 20:11] MED LIST changes: +ASA5GR PO; +BRISDELLE PO; +COREG25 PO; +ECHINACEA1 PO; +FERROUS SULF325 M1 PO; +I10 PO; +JANTOVEN3 MG PO; +L20 PO; +MELATONIN PO; +PACERONE200 MG PO; +PAX10 PO; +UNISOM25 MG PO; +VITAMIN C GUMMY PO
[2016-07-04 02:36] LABS: BASOPHILS 0.8 %; BASOPHILS ABSOLUTE 0.05 10/3/uL (0.0-0.16); EOSINOPHILS 6.4 %; EOSINOPHILS ABSOLUTE 0.38 10/3/uL (0.0-0.53); ER CBC TAT 0 Hrs 05 Mins; HEMOGLOBIN 11.3 g/dL (12.0-16.0); IMMATURE GRANULOCYTES 0.3 %; IMMATURE GRANULOCYTES ABSOLUTE 0.02 10/3/uL (0.0-0.11); LYMPHOCYTES ABSOLUTE 2.44 10/3/uL (0.67-4.30); MANUAL DIFF NO %; MEAN CORPUS HGB CONC 33.2 g/dL (32.0-36.0); MEAN CORPUSCULAR HEMOGLOB 32.2 pg (26.0-34.0); MEAN CORPUSCULAR VOLUME 96.9 fL (80-100); MEAN PLATELET VOLUME 9.6 fL (9.2-13.0); MONOCYTES 9.9 %; MONOCYTES ABSOLUTE 0.59 10/3/uL (0.21-1.20); NEUTROPHILS 41.6 %; NEUTROPHILS ABSOLUTE 2.47 10/3/uL (2.02-8.40); PLATELET COUNT 212 10/3/uL (150-400); RBC DISTRIBUTION WIDTH 14.5 % (12.0-16.0); RED CELL COUNT 3.51 10/6/uL (4.0-5.6)
[2016-07-04 02:43] LABS: INTERNATIONAL NORMAL RATI 1.3 UNITS (-); PARTIAL THROMBO TIME 28.1 SEC (22.5-37.2)
[2016-07-04 02:54] LABS: CALCIUM, SERUM 8.7 MG/DL (8.5-10.4); CHLORIDE, SERUM 105 MMOL/L (96-112); CO2 (CARBON DIOXIDE) 35 MMOL/L (24-34); CREATININE 1.21 MG/DL (0.55-1.02); GFR AFRICAN AMERICAN 55 ML/MIN (>=60); GFR NON AFRICAN AMERICAN 47 ML/MIN (>=60); GLUCOSE, SERUM 115 MG/DL (60-99); POTASSIUM, SERUM 3.6 MMOL/L (3.5-5.3); SODIUM, SERUM 144 MMOL/L (135-148)
[2016-07-04 02:55] LABS: BUN (BLOOD UREA NITROGEN) 11 MG/DL (6-23)
== END 2016-07-04 03:14 | disposition home or self-care (01) ==
LOC: ER 20:11
PROVIDERS: Specialist
DX: S70.11XA Contusion of right thigh, initial encounter (principal); D64.9 Anemia, unspecified; I50.9 Heart failure, unspecified; N18.9 Chronic kidney disease, unspecified; F41.9 Anxiety disorder, unspecified; Z88.8 Allergy status to other drugs, medicaments and biological substances; Z79.01 Long term (current) use of anticoagulants; Z79.899 Other long term (current) drug therapy; X58.XXXA Exposure to other specified factors, initial encounter
CPT/HCPCS: 80048; 85025; 85610; 85730; 93971; 99284